=== PATIENT | male | born 1995 | race Caucasian/White ===

== ENCOUNTER 2016-10-22 19:49 | Emergency (ER) | payer OTHER ==
[2016-10-22 19:58] VITALS: BP 124/70
[2016-10-22] MEDS ORDERED: Ibuprofen TAB* 600 MG PO ONE (20:06)
--- NOTE | 2016-10-22 20:16 | UC ---
Lower Extremity/Ankle HPI - HPI Summary HPI Summary: R ankle inversion injury playing pick-up basketball this evening. No prior fx or sx, but pt has had sprains in the past. Lateral pain and swelling. - History of Current Complaint Chief Complaint: UCLowerExtremity Stated Complaint: ANKLE INJURY Time Seen by Provider: 10/22/16 20:02 Hx Obtained From: Patient Onset/Duration: Sudden Onset Severity Initially: Moderate Severity Currently: Moderate Aggravating Factor(s): Other - movement Alleviating Factor(s): Rest Able to Bear Weight: No - has not tried - Allergies/Home Medications Allergies/Adverse Reactions: Allergies Allergy/AdvReac Type Severity Reaction Status Date / Time No Known Allergies Allergy Unverified 10/22/16 19:58 PMH/Surg Hx/FS Hx/Imm Hx Previously Healthy: Yes - Surgical History Surgical History: None - Family History Known Family History: Positive: Other - positive family history of ankle sprains - Social History Alcohol Use: None Substance Use Type: None Smoking Status (MU): Never Smoked Tobacco Review of Systems Constitutional: Negative Skin: Negative Eyes: Negative ENT: Negative Respiratory: Negative Cardiovascular: Negative Gastrointestinal: Negative Genitourinary: Negative Motor: Negative Neurovascular: Negative Musculoskeletal: Arthralgia, Decreased ROM - R ankle Neurological: Negative Psychological: Negative All Other Systems Reviewed And Are Negative: Yes Physical Exam Triage Information Reviewed: Yes Appearance: Well-Appearing, Pain Distress - mild Vital Signs: Initial Vital Signs Temp 97.5 F 10/22/16 19:53 Pulse 92 10/22/16 19:53 Resp 18 10/22/16 19:53 BP 124/70 10/22/16 19:53 Pulse Ox 100 10/22/16 19:53 Vital Signs Reviewed: Yes Eye Exam: Normal Eyes: Positive: Conjunctiva Clear ENT Exam: Normal ENT: Positive: Normal ENT inspection, Hearing grossly normal, Pharynx normal, TMs normal Dental Exam: Normal Neck exam: Normal Neck: Positive: Supple, Nontender, No Lymphadenopathy Respiratory Exam: Normal Respiratory: Positive: Chest non-tender, Lungs clear, Normal breath sounds, No respiratory distress, No accessory muscle use Cardiovascular Exam: Normal Cardiovascular: Positive: RRR, No Murmur Musculoskeletal Exam: Other - marked swelling, tender over R distal fibula Musculoskeletal: Positive: ROM Limited @ - R ankle Neurological Exam: Normal Neurological: Positive: Alert Psychological Exam: Normal Skin Exam: Normal Lower Extremity Course/Dx - Differential Dx/Diagnosis Provider Diagnoses: R ankle sprain. elevated blood pressure due to discomfort Discharge - Discharge Plan Condition: Stable Disposition: HOME Patient Education Materials: Ankle Sprain (ED), RICE Therapy (ED) Forms: *Work Release Referrals: Willie Puckett MD [Primary Care Provider] - Ervin Farnsworth MD [Medical Doctor] - If Needed
--- NOTE | 2016-10-22 20:48 | RAD ---
Indication: Right ankle pain. 3 views of the right ankle demonstrate soft tissue swelling laterally. There is no fracture. Ankle mortise is intact. IMPRESSION: Soft tissue swelling laterally without evidence of fracture.
== END 2016-10-22 21:10 | disposition home or self-care (01) ==
LOC: UCEAST 19:49
DX: S93.401A Sprain of unspecified ligament of right ankle, initial encounter (principal); X50.0XXA Overexertion from strenuous movement or load, initial encounter; Y93.67 Activity, basketball; Y92.9 Unspecified place or not applicable; Y99.9 Unspecified external cause status; R03.0 Elevated blood-pressure reading, without diagnosis of hypertension
CPT/HCPCS: 99212; A9270-GY; G0463

== ENCOUNTER 2017-06-15 17:30 | Emergency (ER) | payer OTHER ==
[2017-06-15 18:00] VITALS: BP 120/66
--- NOTE | 2017-06-15 20:05 | UC ---
Lower Extremity/Ankle HPI - HPI Summary HPI Summary: 21 year old male here with right 4th toe pain. Reports he hit his foot against a bench. He reports discoloration over toe, prompting him to come to the ED. Denies any other injury. No pain with ambulation. - History of Current Complaint Chief Complaint: UCLowerExtremity Stated Complaint: TOE INJURY Time Seen by Provider: 06/15/17 19:51 Onset/Duration: Sudden Onset, Gradual Onset Severity Initially: Mild Severity Currently: None Pain Intensity: 3 Aggravating Factor(s): Ambulation - Risk Factors Gout Risk Factors: Negative DVT Risk Factors: Negative - Allergies/Home Medications Allergies/Adverse Reactions: Allergies Allergy/AdvReac Type Severity Reaction Status Date / Time No Known Allergies Allergy Unverified 10/22/16 19:58 PMH/Surg Hx/FS Hx/Imm Hx Previously Healthy: Yes - Surgical History Surgical History: None - Family History Known Family History: Positive: None, Other - positive family history of ankle sprains - Social History Alcohol Use: None Substance Use Type: None Smoking Status (MU): Never Smoked Tobacco Review of Systems Constitutional: Negative Skin: Negative Eyes: Negative ENT: Negative Respiratory: Negative Cardiovascular: Negative Gastrointestinal: Negative Genitourinary: Negative Motor: Negative Neurovascular: Negative Musculoskeletal: Negative Neurological: Negative Psychological: Negative All Other Systems Reviewed And Are Negative: Yes Physical Exam Triage Information Reviewed: Yes Appearance: Well-Appearing, No Pain Distress Vital Signs: Initial Vital Signs Temp 36.6 C 06/15/17 17:55 Pulse 57 06/15/17 17:55 Resp 16 06/15/17 17:55 BP 120/66 06/15/17 17:55 Pulse Ox 100 06/15/17 17:55 Vital Signs Reviewed: Yes Eye Exam: Normal Musculoskeletal Exam: Normal Musculoskeletal: Positive: Other: - right foot with 4th toe mild bruising no motor deficit No TTP over phalanges/navicular/cuneiform Nml DP/TP Psychological Exam: Normal Skin Exam: Normal Lower Extremity Course/Dx - Differential Dx/Diagnosis Differential Diagnosis/HQI/PQRI: Cellulitis, Contusion, Strain Provider Diagnoses: Bruising of right 4th toe. Reassured patient. Instructions given to elevate at night. OTC meds as needed Discharge - Discharge Plan Condition: Good Disposition: HOME Patient Education Materials: Foot Contusion (ED) Forms: *Work Release Referrals: No Primary Care Phys,NOPCP [Primary Care Provider] - Additional Instructions: Activity as tolerated. Elevate at night. If you develop pain, take advil over the counter.
== END 2017-06-15 20:02 | disposition home or self-care (01) ==
LOC: UCEAST 17:30
DX: S90.121A Contusion of right lesser toe(s) without damage to nail, initial encounter (principal); W22.8XXA Striking against or struck by other objects, initial encounter; Y93.9 Activity, unspecified; Y92.9 Unspecified place or not applicable
CPT/HCPCS: 99211; G0463

== ENCOUNTER 2019-06-15 21:12 | Emergency (ER) | payer OTHER ==
[2019-06-16 03:27] LABS: Urine Appearance Clear; Urine Bilirubin Negative (Negative); Urine Blood Negative (Negative); Urine Color Yellow; Urine Glucose Negative (Negative); Urine Ketones 1+ (Negative); Urine Nitrite Negative (Negative); Urine Protein Negative (Negative); Urine Urobilinogen Negative (Negative)
--- NOTE | 2019-06-16 03:51 | ED ---
GI/ HPI - HPI Summary HPI Summary: Patient is a 23 y/o M presenting to [facility] with complaints of right testicular/ groin pain for the past two days. He states that he was sleeping on his couch, went to get up, and experienced onset of pain. He states that the pain has been constant and unchanged for the past two days. Pain is characterized as a tightness. He is concerned about the persistent nature of his pain. He denies any fevers and penile discharge. Some nausea noted. He states that sitting for long periods of time aggravates the pain; lying down alleviates it. No PMHx, no daily medications, NKDA, no PSHx. He notes occasional alcohol usage but denies tobacco and substance usage. FMHx of prostate CA in father. Home medications and allergies are reviewed. - History of Current Complaint Chief Complaint: EDGeneral Time Seen by Provider: 06/16/19 03:22 Stated Complaint: TESTICULAR PAIN PER PT Hx Obtained From: Patient Onset/Duration: Started Days Ago, Still Present Timing: Constant, Lasting Days Pain Intensity: 0 Location of Pain: Groin - right groin/testicle Additional Locations for Males: Testicles - right Pain Characteristics: Other: - tightness Associated Signs and Symptoms: Positive: Nausea. Negative: Fever Additional Signs & Symptoms: Negative: Penile Discharge - Allergy/Home Medications Allergies/Adverse Reactions: Allergies Allergy/AdvReac Type Severity Reaction Status Date / Time No Known Allergies Allergy Verified 06/16/19 03:15 Home Medications: Home Medications NK [No Home Medications Reported] 07/11/13 [History Confirmed 06/16/19] PMH/Surg Hx/FS Hx/Imm Hx Endocrine/Hematology History: Denies: Hx Diabetes Cardiovascular History: Denies: Hx Hypertension, Hx Pacemaker/ICD History: Denies: Hx Dialysis, Hx Renal Disease Sensory History: Denies: Hx Hearing Aid Psychiatric History: Denies: Hx Panic Disorder Infectious Disease History: No Infectious Disease History: Denies: Traveled Outside the [place] in Last 30 Days - Family History Known Family History: Positive: Other - prostate CA - Social History Alcohol Use: Occasionally Substance Use Type: Reports: None Smoking Status (MU): Never Smoked Tobacco - Additional Comments History Additional Comments: No PHMx No PSHx FMHx of prostate CA SHx of occasional alcohol usage Review of Systems - ROS Summary Review of Systems Summary: Home Medications Medication Instructions Recorded Confirmed Type NK [No Home Medications Reported] 07/11/13 06/16/19 History Negative: Fever Positive: Nausea Positive: pain - right groin/testicle . Negative: discharge - penile All Other Systems Reviewed And Are Negative: Yes Physical Exam - Summary Physical Exam Summary: General: Well-developed, Well-nourished male. No acute distress. HEENT: Normocephalic, Atraumatic. Eyes: Conjuctiva normal, PERRL. Oropharynx: Clear, mucous membranes moist, (-) exudates. Neck: Soft, FROM, (-) lymphadenopathy, (-) thyromegaly, (-) JVD. Cardiovascular: Normal sinus rhythm, (-) murmur. Lungs: Clear to auscultation bilaterally (-) wheezes, (-) rales, (-) rhonchi. Abdomen: Soft, non-tender, non-distended, (-) organomegaly, normal bowel sounds. Genital Exam: Normal external male genitalia, penis without discharge, normal appearing meatus, testes without tenderness, no mass. No obvious hernia of the groin. Nurse Guerda chaperoned exam. Back: (-) CVA tenderness Extremities: No edema. Skin: Warm, dry, (-) rash. Neuro: Alert and oriented x3, moves all extremities equally. No ataxia. No gait disturbance. No sensory deficit. Normal strength, normal sensation. Psychiatric: Mildly anxious appearing Triage Information Reviewed: Yes Vital Signs On Initial Exam: Initial Vitals Temp Pulse Resp BP Pulse Ox 98.3 F 86 16 141/90 97 06/15/19 21:25 06/15/19 21:25 06/15/19 21:25 06/15/19 21:25 06/15/19 21:25 Vital Signs Reviewed: Yes Procedures - Sedation Patient Received Moderate/Deep Sedation with Procedure: No Diagnostics - Vital Signs Vital Signs Temp Pulse Resp BP Pulse Ox 06/16/19 00:24 98.9 F 75 16 121/72 95 06/15/19 21:25 98.3 F 86 16 141/90 97 - Laboratory Lab Results: Lab Results 06/16/19 Range/Units 03:19 Urine Color Yellow Urine Appearance Clear Urine pH 6.0 (5-9) Ur Specific [place] 1.030 (1.010-1.030) Urine Protein Negative (Negative) Urine Ketones 1+ A (Negative) Urine Blood Negative (Negative) Urine Nitrate Negative (Negative) Urine Bilirubin Negative (Negative) Urine Urobilinogen Negative (Negative) Ur Leukocyte Esterase Negative (Negative) Urine Glucose Negative (Negative) Lab Statement: Any lab studies that have been ordered have been reviewed, and results considered in the medical decision making process. - Ultrasound TESTICULAR US Ultrasound Interpretation Completed By: Radiologist Summary of Ultrasound Findings: IMPRESSION: 1. There is a small left scrotal hydrocele. 2. No testicular torsion, orchitis or epididymitis. THIS REPORT WAS REVIEWED BY ED PHYSICIAN. GIGU Course/Dx - Course Course Of Treatment: 23-year-old male presents with a right testicle and groin tightness. He states is not really a pain. Ever since he went to get up from the couch 2 days ago. Pain has not improved nor worsened. Has not taken anything for. He denies any penile discharge. No fevers or chills. No nausea or vomiting. No bulges. Better with laying down. Worse with standing. On physical exam he has no significant tenderness or masses on palpation. Normal external male genitalia. Testicular ultrasound is within normal limits. UA is negative. Patient is discharged home. Advised relative rest. Tylenol ibuprofen. Ice to the area. Treat as muscular strain. Follow up with PCP. Follow up sooner for any worsening symptoms. - Diagnoses Provider Diagnoses: Groin strain Discharge ED - Sign-Out/Discharge Documenting (check all that apply): Patient Departure - discharge - Discharge Plan Condition: Stable Disposition: HOME Patient Education Materials: Groin Strain (ED) Referrals: [facility] [Outside] - 3 Days Additional Instructions: PLEASE RETURN TO ED FOR ANY NEW OR WORSENING SYMPTOMS. PLEASE FOLLOWUP WITH YOUR PRIMARY CARE PHYSICIAN WITHIN THREE DAYS. - Billing Disposition and Condition Condition: STABLE Disposition: Home - Attestation Statements Document Initiated by Scribe: Yes Documenting Scribe: JAMAL CLEVELAND Provider For Whom Roopa is Documenting (Include Credential): PRABHU ROWE MD Scribe Attestation: JAMAL Silva, scribed for PRABHU ROWE MD on 06/16/19 at 0545. Scribe Documentation Reviewed: Yes Provider Attestation: The documentation as recorded by the JAMAL farrell accurately reflects the service I personally performed and the decisions made by me, PRABHU ROWE MD Status of Scribe Document: Viewed
[2019-06-16 03:56] VITALS: BP 140/84
== END 2019-06-16 03:55 | disposition home or self-care (01) ==
LOC: ED 21:12
DX: S39.011A Strain of muscle, fascia and tendon of abdomen, initial encounter (principal); R11.0 Nausea; X58.XXXA Exposure to other specified factors, initial encounter; Y92.9 Unspecified place or not applicable
CPT/HCPCS: 76870; 81003; 99282